=== PATIENT | male | born 1970 | race Caucasian/White ===

== ENCOUNTER → 2021-06-01 09:28 | Outpatient (BNVA) | payer OTHER, SELFPAY | PROVIDERS: Family Provider Family Medicine; PCP Registered Nurse; Visit Provider Urology | DX: C67.0 Malignant neoplasm of trigone of bladder (principal); R31.0 Gross hematuria | CPT/HCPCS: 81003 ==

== ENCOUNTER → 2021-06-04 07:51 | Outpatient (BNVA) | payer OTHER, SELFPAY | PROVIDERS: Family Provider Family Medicine; PCP Registered Nurse; Visit Provider Urology | DX: Z20.822 Contact with and (suspected) exposure to COVID-19 (principal); C67.0 Malignant neoplasm of trigone of bladder | CPT/HCPCS: 87635 ==

== ENCOUNTER 2021-06-19 07:43 | Outpatient (CLI) | payer MEDICARE, OTHER, SELFPAY ==
[2021-06-19] MEDS: iohexol 300 mg/mL 100 mL Btl IV (08:13)
--- NOTE | 2021-06-19 09:30 | CT_ITS ---
WS: [id number] CT ABDOMEN AND PELVIS WITH AND WITHOUT CONTRAST HISTORY: BLADDER CANCER TECHNIQUE: Unenhanced 5 mm axial imaging first performed through the abdomen. Post contrast imaging t hrough the abdomen and pelvis. Oral contrast has been provided. Sagittal and coronal reformats are s ubmitted. All CT scans at [facility] use at least one of these dose optimization techniqu es: automated exposure control; mA and/or kV adjustment per patient size (includes targeted exams whe re dose is matched to clinical indication); or iterative reconstruction. CONTRAST: Omnipaque 300; 95 mL IV. DLP: 2310.25 mGy.cm COMPARISON: 01/24/2013 Lung bases are clear. No pneumonia. Normal cardiac size. Small hiatal hernia. Normal liver and gallbladder. Portal vein is patent. Spleen is enlarged measuring 16 cm in length. No lesions within the spleen. Normal pancreas and adrenal glands. Normal abdominal aorta. RIGHT kidney: No renal calcification or mass. No hydronephrosis or hydroureter. There is mild perinep hric stranding. Good contrast opacification of the ureter on the delayed imaging. The distal ureter i s poorly opacified. LEFT kidney: Nonobstructing 8 mm calcification in the upper pole. There 2 microcalcifications in the lower pole of the LEFT kidney which are not obstructing. No hydronephrosis or hydroureter. Mild perin ephric stranding. Distal ureter is not well-opacified with contrast. Urinary bladder is moderately well distended. There is an intraluminal filling defect in the base of the bladder to the LEFT of midline measuring 1.6 x 1.5 cm. This mass is just medial to the LEFT urete r orifice. Very mild prominence of the prostate gland encroaching into the urinary bladder. No ascites or adenopathy. No GI tract obstruction. The appendix is normal. There are a few scattered diverticula in the descending colon without acute diverticulitis. No osteoblastic or osteolytic bone disease. Remote healed rib fractures in the posterior inferior LEF T rib cage. CT/CT abdomen pelvis wo/w [address]99 IMPRESSION: 1. Solid mass in the base of the urinary bladder to the LEFT of midline measur es 1.6 x 1.5 cm. This mass is just medial to the LEFT ureteral orifice. Suspici ous for bladder neoplasm. 2. No renal/ureteral obstruction. No additional uroepithelial lesions are iden tified. 3. Nonobstructing LEFT renal calculi. 4. Mild splenomegaly. Size of the spleen is slightly increased since 2013.1 no adenopathy or splenic lesions. 5. Mild distal colonic diverticulosis.
== END 2021-06-19 07:44 | disposition home or self-care (01) ==
LOC: RAD 07:48
PROVIDERS: PCP Family Medicine; Visit Provider Urology
DX: C67.0 Malignant neoplasm of trigone of bladder (principal); K57.90 Diverticulosis of intestine, part unspecified, without perforation or abscess without bleeding; R16.1 Splenomegaly, not elsewhere classified; N20.0 Calculus of kidney
CPT/HCPCS: 74178

== ENCOUNTER 2021-06-22 20:01 | Observation (INO) | payer MEDICARE, OTHER, SELFPAY ==
[2021-06-19 12:50] VITALS: BMI 28.0
[2021-06-22] VITALS (11 sets, daily range): BP systolic 113–135; BP diastolic 69–92; PULSE 51–81; RESP 16–17; TEMP 36.1–36.9; O2SAT 93–99; BMI 27.1
[2021-06-22] MEDS: sodium chloride 0.9% 1,000 ML 30 ML IV (14:16)
[2021-06-22 14:29] LABS: Basophils % 0.3 %; Eosinophils # 0.1 10^3/uL (0.0-0.8); Eosinophils % 1.2 %; Hematocrit 43.1 % (42.0-52.0); Lymphocytes # 1.2 10^3/uL (0.8-4.8); Mean Corpuscular HGB Conc 34.8 g/dL (30.0-36.0); Mean Corpuscular Hemoglobin 30.2 pg (28.0-34.0); Mean Corpuscular Volume 86.9 fL (80-94); Mean Platelet Volume 10.9 fL (7.4-10.4); Monocytes # 0.3 10^3/uL (0.2-0.9); Monocytes % 4.4 %; Neutrophils # 4.28 10^3/uL (1.8-7.7); Neutrophils % 72.9 %; Nucleated Red Blood Cells % 0 %; Platelet Count 105 10^3/cmm (130-400); Red Blood Count 4.96 10^6/uL (4.1-5.3); Red Cell Distribution Width 12.2 % (12.1-15.1); White Blood Count 5.9 10^3/uL (4.0-10.0)
--- NOTE | 2021-06-22 15:00 | P.ANESASSM_ITS ---
Pre-Anesthetic Assessment Pre-Anesthetic Assessment: Height/Weight: Height 1.75 m Weight 86.183 kg Temp Pulse Resp BP Pulse Ox 97.9 F 58 L 16 122/80 95 06/22/21 13:02 06/22/21 13:02 06/22/21 13:02 06/22/21 13:02 06/22/21 13:02 Preop Diagnosis: Newly diagnosed bladder tumor Proposed Procedure: Operation Date: 06/22/21 15:55 Proposed Procedures p Cystoscopy 23666 C67.0(Not Applicable) - Chicho Rodriguez MD s Transurethral Resection Bladder Tumor(Not Applicable) - Chicho Rodriguez MD Was Beta Bob taken within 24 hours: N/A Was Clonidine taken within 24 hours: N/A Last intake: Intake Last Liquid Date 06/22/21 Last Liquid Time 09:00 Last Solid Date 06/21/21 Last Solid Time 17:00 Social: Social History: Tobacco (chews) and No alcohol Exam: Pre-Anes Outpt Exam: alert, oriented x 3, clear to auscultation bilaterally and regular rate & rhythm Airway: Submandibular: WNL Cervical ROM: WNL MP: 2 Dentition: Chipped Additional comments: poor, missing most GI: GI: GERD Musc/skel: Musc/skel: OA/DJD Neuropsych: Neuropsych: Anxiety and Depression Anesthetic Plan: ASA status: 3 Anesthesia: General Risk of > 500 ml blood loss (7ml/kg in children): No Meds/Allergies Current Medications: Current Medications Generic Name Dose Route Start Last Admin Trade Name Freq PRN Reason Stop Dose Admin Sodium Chloride 1,000 mls @ 30 ml s/hr 06/22/21 13:00 06/22/21 14:16 Sodium Chloride 0.9% IV 06/23/21 12:59 30 mls/hr .Q24H SULAIMAN Administration PFSH Anesthesia PFSH: Medical History 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 Gross hematuria Surgical History History of hernia surgery Family History (Updated 06/01/21 @ 09:25 by Philomena Davidson LPN) Father , at age 75 COVID-19 Mother Osteoarthritis Social History Smoking and tobacco status: former smoker Alcohol intake: never Marital status: Single Current occupational status: employed History of recent travel: No Data Anesthesia CBC & Chem 7: 06/22/21 13:55 06/22/21 13:55 Other Labs: Laboratory Results - last 48 hr 06/22/21 13:55 WBC 5.9 RBC 4.96 Hgb 15.0 Hct 43.1 MCV 86.9 MCH 30.2 MCHC 34.8 RDW 12.2 Plt Count 105 L MPV 10.9 H Neut % (Auto) 72.9 Lymph % (Auto) 21.0 [place] % (Auto) 4.4 Eos % (Auto) 1.2 Baso % (Auto) 0.3 Neut # (Auto) 4.28 Lymph # (Auto) 1.2 [place] # (Auto) 0.3 Eos # (Auto) 0.1 Baso # (Auto) 0.0 Nucleated RBC % (auto) 0 Nucleated RBCs # 0.0 Cardiac Studies: No Data to Display
[2021-06-22 15:06] LABS: Alanine Aminotransferase 19 U/L (0-41); Albumin Level 4.3 g/dL (3.5-5.2); Alkaline Phosphatase 59 IU/L (40-130); Anion Gap 13.2 (5-19); Aspartate Amino Transferase 20 U/L (0-40); Blood Urea Nitrogen 20 mg/dL (6-20); Calcium 8.5 mg/dL (8.5-10.5); Carbon Dioxide 24 mmol/L (22-29); Chloride 104 mmol/L (98-107); Globulin 2.8 g/dL (1.3-4.6); Glomerular Filtration Rate 119.9 mL/min (90-130); Glucose 84 mg/dL (65-115); Osmolality Calculated 286 mOsm/kg (285-295); Potassium 4.2 mmol/L (3.5-5.1); Sodium 137 mmol/L (136-145); Total Bilirubin 0.5 mg/dL (0.15-1.2); Total Protein 7.1 g/dL (6.6-8.7)
--- NOTE | 2021-06-22 16:43 | P.HPUD_ITS ---
Surgery/Procedure H&P Update DATE OF PROCEDURE: June 22, 2021 DATE H&P PERFORMED: 06/01/21 H&P UPDATE INFORMATION: I have reviewed H&P completed within last 30 days, I have examined patient prior to procedure, Changes to prior documentation as noted here and H&P is in [facility] EMR on date indicated CHANGES TO PREVIOUS DOCUMENTATION: Had asymptomatic Covid per routine screening Covid testing before surgery. Never had any symptoms. Never had a problem. Waited the appropriate time for safety regarding anesthesia PREOP DIAGNOSIS: Newly diagnosed bladder tumor PLANNED PROCEDURE: Operation Date: 06/22/21 15:55 Proposed Procedures p Cystoscopy 94818 C67.0(Not Applicable) - Chicho Rodriguez MD s Transurethral Resection Bladder Tumor(Not Applicable) - Chicho Rodriguez MD
--- NOTE | 2021-06-22 17:43 | P.OP_ITS ---
Operative Report Date of procedure: June 22, 2021 Pre-op Diagnosis: Newly diagnosed bladder tumor Post-op Diagnosis: 1. Papillary tumor left trigone involving the left ureteral orifice 2. Suspicious bladder mucosa distinctly separate from the bladder tumor described above 3. Urethral stricture dilated and bypassable. Did not interfere with passage of the scopes. Procedure Done: 1. Cystoscopy, transurethral resection of bladder tumor large 2. Biopsy of suspicious mucosa left posterior bladder floor separate location 3. LEFT ureteroscopy, no stent Pathology: Bladder tumor specimens Surgeon: Michael Anesthesia: General Estimated blood loss: Less than 50 cc Urine output: Not measured Complications: None Findings: Papillary tumor involving the left side of the trigone and left ureteral orifice measuring approximately 3 cm in diameter. Suspicious mucosa lateral and distal to the ureteral orifice and tumor with flat appearance, suspicious for possible atypia or carcinoma in situ measuring about 3 cm as well. Completely fulgurated after sampling Condition: stable Disposition: PACU Brief History: Guzman is a very pleasant 50-year-old white male recently diagnosed with a papillary lesion in the bladder consistent with TCCA. Follow-up CT scan (for hematuria) showed the bladder tumor no other obvious abnormality other than renal calculus. He was originally scheduled a couple weeks ago for TURBT but had to be postponed due to an asymptomatic positive Covid test. Procedure: After routine preoperative evaluation examination and obtaining of informed consent he was taken to the operating suite on 06/22/2021 where general anesthesia was administered without difficulty after appropriate timeout was performed, SCDs confirmed to be functioning, preoperative antibiotics administered, beta- star protocol confirmed. Prepped and draped in usual sterile fashion in dorsolithotomy position paying careful attention to avoiding pressure points. 21 Sammarinese cystoscope with 30 degree lens was introduced into urethra meatus and advanced into the bladder under videoscopy. The bladder was systematically examined. Cystoscopic findings: Bypassable urethral stricture initially dilated with a 21 Sammarinese, 23 Sammarinese and then 25 Sammarinese cystoscope sheath followed by [place] sounds as below. 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 Measured approximately 3 cm in side. It was directly over the left side of the trigone with no visualization of the left ureteral orifice made. There was also some suspicious mucosa distal and lateral to the left ureteral orifice and tumor that could have represented carcinoma in situ versus atypia type appearance. This measured another roughly 3 cm in diameter. The urethra was then calibrated with [place] sounds and easily accommodated 30 Sammarinese. 2% lidocaine jelly was instilled into the urethra then a well-lubricated 25 Sammarinese continuous-flow resectoscope sheath with visual obturator in place was advanced into the bladder without difficulty. The gyrus bipolar system was utilized with the super loop for resection of the button probe for fulguration of the base. The tumor was resected down to its base with a super loop. The tumor involved the ureteral orifice which was resected deeply. Deep resection into the bladder wall with cystoscopic visualization of muscle made. The ureter was identified in the middle of the resection. It had a wide opening. No visible tumor was noted at the resection site. There was no active bleeding at the edges of the ureter. All chips were evacuated from the bladder with an TreatFeed evacuator and hemostasis was visually confirmed. Indigo carmine had been injected intravenously and was seen to be emanating from both ureteral orifices. To confirm that there was no tumor inside of the ureter, a ureteroscopy was then performed. A 7 Sammarinese offset semirigid ureteroscope was advanced into the bladder under videoscopy. The end of the scope was manipulated into the ureteral orifice and up the ureter several inches. The ureter was carefully inspected and no residual tumor was identified. There were several small bleeding areas close by but not involving the ureteral orifice and these were carefully fulgurated with the super loop. No fulguration was conducted over the ureteral orifice. The suspicious mucosa mucosa described above was then sampled with a cold cup biopsy forcep. The button probe was then utilized to fulgurate this biopsy area and the surrounding mucosa for the full diameter of the suspicious changes. On final inspection hemostasis was meticulous. All samples were sent for pathologic evaluation. The resected left ureteral orifice was effluxing easily. No stent. Tolerated procedure well without complications and was awakened in the operating room and returned to recovery in stable condition. PLANS: 1. Admit to observation status with Roy catheter in place. CBI as needed 2. Anticipate mitomycin instillation in the morning with voiding trial 3. Anticipate discharge from the hospital tomorrow likely without Roy catheter.
[2021-06-22] MEDS: levofloxacin-dextrose 5 % 500 MG/100 ML PREMIX 100 MG IV (17:55)
[2021-06-22] MEDS: lidocaine 2% Urojet 20 mL TOPICAL (18:25)
--- NOTE | 2021-06-22 19:53 | ANE.PACU2 ---
Inpatient post-anesthesia follow up: Airway intact: Yes Vital signs: Temperature 97.5 F Pulse Rate 57 Respiratory Rate 16 Blood Pressure 125/84 Pulse Oximetry 95 Oxygen Delivery Me thod Room Air Oxygen Flow Rate 5 Fraction of Inspir ed Oxygen Hydration adequate: Yes Nausea and vomiting: No Pain level: 2 Mental status: Baseline
[2021-06-22] MEDS: docusate sodium 100 mg Capsule PO (21:23)
[2021-06-22] MEDS: pantoprazole DR 40 mg Tablet PO (21:23)
[2021-06-22] MEDS: sertraline 100 mg Tablet PO (21:23)
--- NOTE | 2021-06-22 23:09 | PC.NURSE ---
Admit Note Patient admitted to room from surgery via rney at 1930. Covering service notified. Patient presents with POD#0 TURBT with CBI running clear and blue tinted, IVF running. No pain, just c/o needing to void and understands that he has a catheter in. Pt is A&OX4. Orders reviewed & will continue to monitor. Patient and/or sales representative groceries oriented to environment, equipment, and informed of the following as found in the admission booklet: patient rights & responsibilities, visitor policy, hand and respiratory hygiene practice. Other education includes: CBI, pain management, evening medications scheduled, SCD, diet and plan for the morning with Physician rounds. Patient and/or sales representative groceries verbalized understanding.
[2021-06-23 00:05] VITALS: BP 120/77; PULSE 71; RESP 16; TEMP 36.6; O2SAT 93
[2021-06-23] MEDS: HYDROcodone-acetaminophen 5-325 mg Tablet 1 TAB PO (00:32)
[2021-06-23 02:17] VITALS: BP 111/64; PULSE 74; RESP 16; TEMP 36.6; O2SAT 93
--- NOTE | 2021-06-23 03:40 | PC.NURSE ---
CBI: Pt has had 1000 of NS via CBI as of 0340 and 2450 of urine output total for a difference of 1450ml of urine output for this shift. CBI dripping slowly and urine remains clear, no clots noted. Pain well controlled.
[2021-06-23 04:05] VITALS: BP 105/66; PULSE 63; RESP 16; TEMP 37.1; O2SAT 94
--- NOTE | 2021-06-23 06:50 | PC.NURSE ---
Shift Note Frequent safety and comfort rounds continue. Orders and/or nursing care completed as indicated. Patient monitored for response to intervention and treatment. Education provided includes CBI titration and pain management. Patient verbalized understanding. Maintained good urine output. Will continue to monitor.
--- NOTE | 2021-06-23 06:51 | PC.NURSE ---
CBI: At 0600 Intake 300ml of NS via CBI and 100ml of urine output received.
--- NOTE | 2021-06-23 07:33 | P.DS_ITS ---
Discharge Providers Date of Admission: 06/22/21 20:01 Date of Discharge: June 23, 2021 Attending Provider at Admission: Chicho Rodriguez MD Attending Provider at Discharge: Chicho Rodriguez MD Primary Care Provider: Sil Harp DO Diagnoses at Discharge Discharge Diagnosis (1) Cancer of trigone of urinary bladder: Status: Acute Permanent problem details: Diagnosed May 2021 during work-up for gross hematuria. Reason for Visit Reason for Visit: cystoscopy Hospital Course Hospital Course He was admitted on the day of the procedure (06/22/2021) for TURBT of a newly diagnosed bladder cancer over the left ureteral orifice/left trigone. The procedure went well. The tumor was completely resected and it involved the left ureteral orifice which was also resected. Left ureteroscopy revealed no evidence of tumor extending up the ureter. There was also some mucosal characteristics suspicious for possible carcinoma in situ in this area was sampled and then fulgurated. Total resected/fulgurated area was >5 cm. Postoperatively he did well. His urine remained clear. On postoperative day number 140 mg of mitomycin and 40 cc was instilled into the bladder without difficulty and he tolerated it well for an hour at which point it was drained. Voiding trial was successful and he was discharged after adequate voiding was confirmed and no significant bleeding also was confirmed. Discharged in stable condition with plans for follow-up in about 2 months with a renal ultrasound and a cystoscopy. He was instructed to call if he has not heard from my office regarding his pathology report sometime within the next week. I reviewed how he could reach me after hours as well. Physical Exam Const: COMMON NORMALS: no acute distress, alert and well nourished GENERAL APPEARANCE: well kempt and well developed ORIENTATION/CONSCIOUSNESS: not confused HENMT: COMMON NORMALS: normocephalic and atraumatic HEAD & SCALP: normocephalic and atraumatic Eye: COMMON NORMALS: conjunctivae normal CONJUNCTIVA: Yes conjunctivae normal Neck/C-Spine: COMMON NORMALS: full ROM GENERAL: Yes normal visual inspection Resp: COMMON NORMALS: normal respiratory effort EFFORT & INSPECTION: No labored and No Actively coughing : BLADDER/KIDNEY EXAM: Yes bladder normal to palpation PENIS: normal penis MEATUS: meatus normal SCROTUM: Yes testes descended bilaterally and No Scrotal tenderness present Neuro: SENSORIUM/ORIENTATION: Yes alert Psych: COMMON NORMALS: mental status grossly normal and Normal thought process present APPEARANCE: Yes grossly normal and Yes well kempt ATTITUDE: Yes calm and Yes engaged THOUGHT PROCESS: Normal thought process present Skin: COMMON NORMALS: no rashes or lesions noted and no jaundice GENERAL SKIN EXAM: no rashes or lesions noted Urinary Catheter Management^: 3-way Urethral CBI: Cath Placed During This Visit: yes Reason for Continuing Indwelling Catheter: Perioperative Use in Selected Surgeri es Urinary Catheter Date of Insertion: 06/22/21 Urinary Catheter Time of Insertion: 18:45 Discharge Data Data Completed and Pending: Pending at discharge Category Date Time Status Pathology: Surgic al [PTH] Routine Pth 06/22/21 18:33 Ordered Labs from last 24 hours 06/22/21 06/22/21 13:55 13:55 WBC 5.9 RBC 4.96 Hgb 15.0 Hct 43.1 MCV 86.9 MCH 30.2 MCHC 34.8 RDW 12.2 Plt Count 105 L MPV 10.9 H Neut % (Auto) 72.9 Lymph % (Auto) 21.0 [place] % (Auto) 4.4 Eos % (Auto) 1.2 Baso % (Auto) 0.3 Neut # (Auto) 4.28 Lymph # (Auto) 1.2 [place] # (Auto) 0.3 Eos # (Auto) 0.1 Baso # (Auto) 0.0 Nucleated RBC % (a uto) 0 Nucleated RBCs # 0.0 Sodium 137 Potassium 4.2 Chloride 104 Carbon Dioxide 24 Anion Gap 13.2 BUN 20 Creatinine 0.7 GFR Calculation 119.9 Glucose 84 Calculated Osmolal ity 286 Calcium 8.5 Total Bilirubin 0.5 AST 20 ALT 19 Alkaline Phosphata se 59 Total Protein 7.1 Albumin 4.3 Globulin 2.8 Vitals: Last Vital Signs Temp 98.7 F 06/23/21 04:05 Pulse 63 06/23/21 04:05 Resp 16 06/23/21 04:05 BP 105/66 06/23/21 04:05 Pulse Ox 94 06/23/21 04:05 Discharge Plan Discharge Patient Disposition: Home Condition: Stable Prescriptions: Continued alprazolam 1 mg tablet 1 mg PO BEDTIME RF: 0 trazodone 100 mg tablet 100 mg PO DAILY RF: 0 esomeprazole magnesium [Nexium] 40 mg capsule,delayed release(DR/EC) 40 mg PO BEDTIME RF: 0 sertraline 100 mg tablet 100 mg PO BEDTIME RF: 0 zinc 50 mg tablet 50 mg PO DAILY RF: 0 multivitamin Tablet 1 tab PO DAILY RF: 0 cetirizine [Zyrtec] 10 mg Tablet 10 mg PO DAILY RF: 0 montelukast [Singulair] 10 mg Tablet 10 mg PO DAILY RF: 0 Held meloxicam 15 mg Tablet 15 mg PO DAILY RF: 0 Hold Instructions: Resume on 06/30/21. Discharge Orders: Discharge Order (Routine); Ordered 06/23/21 Ordered By: Chicho Rodriguez Referrals: Chicho Rodriguez MD [Physician] - 08/25/21 9:45 am (Cystoscopy Check into the hospital prior to appointment for a renal ultrasound then proceed to Dr. Augustine office. ) Discharge Diet: Usual diet Discharge Activity: Limit activity as instructed Patient Instructions: Cystoscopy (DC), Transurethral Resection of Bladder Tumors (GEN), Opioid Safety Activity Restrictions/Additional Instructions: 1. Please do not lift more than 10 pounds for 3 weeks. 2. Call if you are having difficulty voiding. Stretching your bladder out, becoming distended can be a big problem if it occurs. 3. Drinking more fluid than usual can be helpful to flush your bladder if you have seeing bleeding. 4. We will plan on looking into your bladder and doing a RENAL ULTRASOUND in about 2 months. 5. If not heard from my office within a week please call so we can review your pathology report. 6. At this point it appears that the bladder cancer is not invasive or very aggressive but the pathology report will tell us more information. Discharge Attestations Time Spent in Discharge Care*: greater than 30 min Specific Discharge Activities: educating patient, documenting/other paperwork and evaluating patient/reviewing data Other discharge activites (optional): Mitomycin instillation Quality Metrics Clinical Quality Measures During this hospital stay, did patient experience: None Coding Level of Care Code Acute Chg FW DC note Exam Comprehensive Diagnoses Cancer of trigone of urinary bladder C67.0
[2021-06-23 07:43] VITALS: BP 111/64; PULSE 61; RESP 17; TEMP 36.5; O2SAT 95
--- NOTE | 2021-06-23 07:52 | PC.NURSE ---
mitomycin administered by Dr Rodriguez at 0720.
[2021-06-23] MEDS: cetirizine 10 mg Tablet PO (08:05)
[2021-06-23] MEDS: docusate sodium 100 mg Capsule PO (08:05)
[2021-06-23] MEDS: trazodone 100 mg Tablet PO (08:05)
--- NOTE | 2021-06-23 08:27 | PC.NURSE ---
Drained Mitomycin at 0820.
--- NOTE | 2021-06-23 08:27 | PC.NURSE ---
Roy catheter removed. urinal provided.
--- NOTE | 2021-06-23 10:45 | PC.NURSE ---
discharge instructions given to patient. patient verbalized understanding of instructions. patient calling family for ride home.
--- NOTE | 2021-06-23 11:07 | PC.NURSE ---
patient taken to private vehicle via wheelchair by staff.
[2021-06-23 11:08] VITALS: BP 111/64; PULSE 61; RESP 17; TEMP 36.5; O2SAT 95
--- NOTE | 2021-06-29 10:37 | PC.SOCIAL ---
Discharge follow up call made. Patient aware of follow up appointment with Dr. Rodriguez 10-12 @3543. Patient states he is feeling pretty good No new medications prescribed.
== END 2021-06-23 11:09 | disposition home or self-care (01) ==
LOC: MEDSURG 20:02
PROVIDERS: Admitting Provider Urology; PCP Family Medicine; Visit Provider Urology
PROC: 0TJB8ZZ Inspection of Bladder, Via Natural or Artificial Opening Endoscopic (ICD-10-PCS; CPT 52000; principal; 2021-06-22 15:55)
PROC: 0TBB8ZZ Excision of Bladder, Via Natural or Artificial Opening Endoscopic (ICD-10-PCS; CPT 52204; 2021-06-22 15:55)
PROC: 0TJ98ZZ Inspection of Ureter, Via Natural or Artificial Opening Endoscopic (ICD-10-PCS; CPT 52351; 2021-06-22 15:55)
DX: C67.0 Malignant neoplasm of trigone of bladder (principal); N35.919 Unspecified urethral stricture, male, unspecified site; K21.9 Gastro-esophageal reflux disease without esophagitis; M19.90 Unspecified osteoarthritis, unspecified site; F41.9 Anxiety disorder, unspecified; F32.9 Major depressive disorder, single episode, unspecified; Z87.891 Personal history of nicotine dependence
CPT/HCPCS: 52204; 52240; 51798; 80053; 85025; 88305; 96365; G0378; J1100; J1940; J1956; J2405; J2704; J2710; J3010; J3490; J7030; J9280

== ENCOUNTER → 2021-07-27 09:24 | Outpatient (BNVA) | payer MEDICARE, OTHER, SELFPAY | PROVIDERS: PCP Family Medicine; Visit Provider Nurse Practitioner Family | DX: C67.0 Malignant neoplasm of trigone of bladder (principal) | CPT/HCPCS: 81003 ==

== ENCOUNTER 2021-08-06 18:45 | Observation (INO) | payer MEDICARE, OTHER, SELFPAY ==
[2021-08-05 13:45] VITALS: BMI 26.9
[2021-08-06] VITALS (8 sets, daily range): BP systolic 116–150; BP diastolic 81–97; PULSE 69–95; RESP 12–19; TEMP 36.6–37.2; O2SAT 92–95; BMI 26.9
--- NOTE | 2021-08-06 | SCC_ITS ---
Procedure Done: 1. Cystoscopy, left retrograde ureteropyelogram 2. Transurethral resection of previous TURBT site with deep sampling 20.9 seconds of fluoroscopic guidance, for a cumulative dose of 5.48 mGy, was provided to Dr. Rodriguez by the radiology department. C-arm images of the abdomen were saved for the patient's permanent record. [facility]
--- NOTE | 2021-08-06 13:25 | SC_ITS ---
WS: [id number] INTRAOPERATIVE TECHNIQUE: 4 Spot fluoroscopic images for intraoperative purposes. FLUOROSCOPY TIME: 20.9 seconds CLINICAL INFORMATION: possible ureteroscopy COMPARISON: None. FINDINGS: Left ureteroscopy with contrast injection for intraoperative purposes. SC/C-arm FL for Urology IMPRESSION: Images obtained for intraoperative purposes.
[2021-08-06] MEDS: sodium chloride 0.9% 1,000 ML 30 ML IV (14:05)
--- NOTE | 2021-08-06 14:53 | P.HP_ITS ---
Providers/Chief Complaint Primary Care Provider: Sil Harp DO Chief Complaint: cytoscopy History of Present Illness Guzman De is a 51 year old male who is admitted for repeat deep resection following transurethral resection of bladder tumor for a 3 cm papillary tumor on the trigone involving the left ureteral orifice which was resected. A follow-up ureteroscopy showed no evidence of involvement in the ureter that included the intramural tunnel. No stent was left. The procedure was performed on 06/22/2021. 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 There was some lamina propria invasion identified. Based on the high risk bladder tumor pathology it was recommended a deeper resection to confirm the absence of muscle involvement. He is admitted now through outpatient surgery for TURBT of the previous site looking for evidence of residual tumor and as well the potential for muscle invasion that was not identified at initial resection. Review of Systems Const: Denies: fever(s) or chills Eyes: Denies: change in vision or blurry vision Card: Denies: chest pain Resp: Denies: dyspnea or productive cough GI: Denies: abdominal pain or constipation : Denies: urinary frequency or urinary urgency Psych: Denies: anxiety or depression Medications/Allergies Home Medications Medication Instructions Recorded Confirmed Last Taken Type alprazolam 1 mg tablet 1 mg PO BEDTIME 06/01/21 08/06/21 08/05/21 22:00 History esomeprazole magnesium 40 mg 40 mg PO BEDTIME 06/01/21 08/06/21 08/05/21 History capsule,delayed release multivitamin 1 tab PO DAILY 06/01/21 08/06/21 08/05/21 History sertraline 100 mg tablet 100 mg PO BEDTIME 06/01/21 08/06/21 08/05/21 History trazodone 100 mg tablet 100 mg PO DAILY 06/01/21 08/06/21 08/05/21 History zinc 50 mg tablet 50 mg PO DAILY 06/01/21 08/06/21 08/05/21 History cetirizine [Zyrtec] 10 mg PO DAILY 06/19/21 08/06/21 08/05/21 22:00 History montelukast [Singulair] 10 mg PO DAILY 06/19/21 08/06/21 08/05/21 History Allergies Allergy/AdvReac Type Severity Reaction Status Date / Time Penicillins Allergy ALTA-Siva Verified 08/06/21 13:35 Lip/Tongue/Throat PFSH Acute PFSH: Medical History (Updated 08/06/21 @ 14:58 by Chicho Rodriguez MD) 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 Lamina propria invasion. Gross hematuria Surgical History History of hernia surgery Family History Father , at age 75 COVID-19 Mother Osteoarthritis Social History Alcohol intake: never Marital status: Single Current occupational status: employed History of recent travel: No Vitals/I&O/Wt Last Vital Signs Temp 99.0 F 08/06/21 13:34 Pulse 80 08/06/21 13:34 Resp 17 08/06/21 13:34 BP 121/84 08/06/21 13:34 Pulse Ox 95 08/06/21 13:34 Weight last 48 hrs Weight 180 lb Physical Exam Const: COMMON NORMALS: no acute distress, alert and well nourished GENERAL APPEARANCE: well kempt and well developed ORIENTATION/CONSCIOUSNESS: not confused HENMT: COMMON NORMALS: normocephalic and atraumatic HEAD & SCALP: normocephalic and atraumatic Eye: COMMON NORMALS: conjunctivae normal CONJUNCTIVA: Yes conjunctivae normal Neck/C-Spine: COMMON NORMALS: full ROM GENERAL: Yes normal visual inspection Lymph: LYMPHATIC: no lymphadenopathy noted and no lymphedema noted Resp: COMMON NORMALS: normal respiratory effort and clear to auscultation bilaterally EFFORT & INSPECTION: No labored and No Actively coughing AUSCULTATION: clear to auscultation bilaterally Cardio: RATE: regular rate RHYTHM: regular rhythm Neuro: SENSORIUM/ORIENTATION: Yes alert Psych: COMMON NORMALS: mental status grossly normal and Normal thought process present APPEARANCE: Yes grossly normal and Yes well kempt ATTITUDE: Yes calm and Yes engaged THOUGHT PROCESS: Normal thought process present Skin: COMMON NORMALS: no rashes or lesions noted and no jaundice A&P Assessment and plan (1) Cancer of trigone of urinary bladder: High risk bladder cancer. Back for restaging resection. 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
--- NOTE | 2021-08-06 15:57 | ANES.PREANE2 ---
Pre-Anesthetic Assessment Pre-Anesthetic Assessment: Height/Weight: Height 1.74 m Weight 81.647 kg Temp Pulse Resp BP Pulse Ox 99.0 F 80 17 121/84 95 08/06/21 13:34 08/06/21 13:34 08/06/21 13:34 08/06/21 13:34 08/06/21 13:34 Preop Diagnosis: High-grade lamina propria invasive TCCA bladder Proposed Procedure: Operation Date: 08/06/21 15:35 Proposed Procedures p Cystoscopy 04328 [id number] C67.0(Not Applicable) - Chicho Rodriguez MD s Transurethral Resection Bladder Tumor(Not Applicable) - Chicho Rodriguez MD s Retrograde Pyelogram(Left) - Chicho Rodriguez MD s Ureteroscopy(Not Applicable) - Chicho Rodriguez MD Was Beta Bob taken within 24 hours: N/A Was Clonidine taken within 24 hours: N/A Last intake: Intake Last Liquid Date 08/06/21 Last Liquid Time 10:00 Last Solid Date 08/05/21 Last Solid Time 20:00 Social: Social History: Tobacco (chews) and No alcohol Exam: Pre-Anes Outpt Exam: alert, oriented x 3, clear to auscultation bilaterally and regular rate & rhythm Airway: Submandibular: WNL Cervical ROM: WNL MP: 2 Dentition: False (upper) Additional comments: Missing most of lower arch GI: GI: GERD Musc/skel: Musc/skel: OA/DJD Neuropsych: Neuropsych: Anxiety and Depression Anesthetic Plan: ASA status: 3 Anesthesia: General Meds/Allergies Current Medications: Current Medications Generic Name Dose Route Start Last Admin Trade Name Freq PRN Reason Stop Dose Admin Sodium Chloride 1,000 mls @ 30 ml s/hr 08/06/21 13:30 08/06/21 14:05 Sodium Chloride 0.9% IV 08/07/21 13:29 30 mls/hr .Q24H SULAIMAN Administration PFSH Anesthesia PFSH: Medical History (Updated 08/06/21 @ 14:58 by Chicho Rodriguez MD) 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 Lamina propria invasion. Gross hematuria Surgical History History of hernia surgery Family History Father , at age 75 COVID-19 Mother Osteoarthritis Social History Alcohol intake: never Marital status: Single Current occupational status: employed History of recent travel: No Data Anesthesia Cardiac Studies: No Data to Display
[2021-08-06] MEDS: levofloxacin-dextrose 5 % 500 MG/100 ML PREMIX 100 MG IV (17:20)
[2021-08-06] MEDS: lidocaine 2% Urojet 20 mL TOPICAL (17:44)
--- NOTE | 2021-08-06 18:15 | P.OP_ITS ---
Operative Report Date of procedure: August 06, 2021 Pre-op Diagnosis: High-grade lamina propria invasive TCCA bladder Pre-op Diagnosis: Sarcomatoid differentiation Post-op diagnosis: same Procedure Done: 1. Cystoscopy, left retrograde ureteropyelogram 2. Transurethral resection of previous TURBT site with deep sampling Implants: None Pathology: Left trigone resection Surgeon: Michael Anesthesia: General Estimated blood loss: Minimal Urine output: Not measured Complications: None Findings: No gross tumor visualized. Deeper sections taken at the previous resection site. Left retrograde ureteropyelogram showed no evidence of obstruction filling defects etc. The area of the ureteral orifice resection is healing well with wide open meatus. Condition: stable Disposition: PACU Brief History: Guzman is a delightful 51-year-old white male recently discovered on work-up for gross hematuria to have a papillary lesion over the left ureteral orifice which appeared to be typical for TCCA. He underwent resection and was found to have high-grade TCCa with sarcomatoid variation/differentiation. There was some lamina propria invasion. No muscle was identified. He is taken back now for restaging resection of the same area. Procedure: After routine preoperative evaluation examination and obtaining of informed consent he was taken to the operating suite on 08/06/2021 where general anesthesia was administered without difficulty after appropriate timeout was performed, SCDs confirmed to be functioning, preoperative antibiotics administered, beta-star protocol confirmed. Prepped and draped in usual sterile fashion in dorsolithotomy position paying careful attention to avoiding pressure points. 21 [place] cystoscope with 30 degree lens was introduced into urethra meatus and advanced into the bladder under videoscopy. He was found to have a large bypassable mid urethral stricture there which was quite flimsy. The bladder was systematically examined with 30 and 70 degree lenses. There were some papillary changes just cephalad to the left ureteral orifice but these appear to be more inflammatory/healing appearance as opposed to recurrent tumor. The ureteral orifice itself was quite prominent and consistent with the findings of the previous resection which involved into intramural tunnel with some eversion of the ureteral tissue into the bladder. E flux was noted. An 8 [place] cone-tip catheter was intubated to the left ureteral orifice for left retrograde ureteropyelogram which demonstrated normal course and caliber of the ureter. The pyelocalyceal system looked normal. There is no evidence of any filling defects in the distal ureteral area. [place] sounds were then passed to 26 [place] with no difficulty. A 25 [place] continuous-flow resectoscope sheath was advanced into the well- lubricated urethra into the bladder with use of a visual obturator without difficulty. Super loop was utilized for resection of the area near the orifice where a previous resection had been completed and it was taken down deeply into the muscle for an extension of about 2-1/2 to 3 cm total resected area. Muscle was clearly visualized. Depth was clearly into that area. Bleeding was controlled with electrocautery staying well away from the ureteral orifice i tself. Bladder was drained of the fragments and these were sent for pathologic evaluation. Hemostasis was confirmed and the procedure was completed. The bladder was drained with a 20 [place] Roy with good reflux. Low flow prophylactic normal saline CBI was initiated. PLANS: 1. Admit to observation status 2. Based on the depth of resection I will probably send him home with a ca theter in place. 3. Final plans pending pathology report
--- NOTE | 2021-08-06 18:24 | P.PCN_ITS ---
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
--- NOTE | 2021-08-06 18:27 | SUR.PHASEI ---
1820 patient to pacu from or. rr even and unlabored. talkative, denies pain. patient has christina cath in place, secured to right leg with cbi running, urine clear.
--- NOTE | 2021-08-06 18:29 | ANE.PACU2 ---
Inpatient post-anesthesia follow up: Airway intact: Yes Vital signs: Temperature 99.0 F Pulse Rate 80 Respiratory Rate 17 Blood Pressure 121/84 Pulse Oximetry 95 Oxygen Delivery Me thod Room Air Oxygen Flow Rate Fraction of Inspir ed Oxygen Hydration adequate: Yes Nausea and vomiting: No Pain level: 2 Mental status: Baseline
--- NOTE | 2021-08-06 19:02 | SUR.PHASEI ---
1850 patient to med surg at this time. a/ox3, talkative. denies pain. patient ambulatory from stretcher to bed, with steady gait.
[2021-08-06] MEDS: sertraline 100 mg Tablet PO (20:31)
[2021-08-06] MEDS: pantoprazole DR 40 mg Tablet PO (20:31)
[2021-08-06] MEDS: lactated ringers 1,000 ML 50 ML IV (20:33)
[2021-08-07] VITALS: BP 135/87; PULSE 84; RESP 17; TEMP 36.8; O2SAT 95
[2021-08-07 03:06] VITALS: BP 120/75; PULSE 86; RESP 17; TEMP 36.6; O2SAT 96
[2021-08-07 07:41] VITALS: BP 126/88; PULSE 86; RESP 18; TEMP 36.5; O2SAT 95
[2021-08-07 09:24] VITALS: BP 126/88; PULSE 86; RESP 18; TEMP 36.5; O2SAT 95
--- NOTE | 2021-08-08 10:20 | PM.DCS ---
Discharge Providers Date of Admission: 08/06/21 18:45 Date of Discharge: August 08, 2021 Attending Provider at Admission: Chicho Rodriguez MD Attending Provider at Discharge: Chicho Rodriguez MD Primary Care Provider: Sil Harp DO Diagnoses at Discharge Discharge Diagnosis (1) Cancer of trigone of urinary bladder: Status: Acute Permanent problem details: Diagnosed May 2021 during work-up for gross hematuria. 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 Lamina propria invasion. Reason for Visit Reason for Visit: High risk bladder cancer Hospital Course Hospital Course Guzman was admitted on 08/06/2021 for repeat resection for staging purposes after initial TURBT of the LEFT trigone demonstrated high-grade lamina propria invasive TCCA with sarcomatoid variant/differentiation. Previous ureteroscopy at time of initial resection showed no evidence of involvement of the ureter proximal to the resection. The procedure went well. A left retrograde ureteropyelogram showed no evidence of obstruction or filling defects. The ureter was healing well after resection of the distal intramural tunnel. Deep resection was performed down to visible muscle tissue and for that reason catheter was left in place at discharge for further healing prior to voiding trial. He was discharged on postoperative day #1 in stable condition after no untoward events on the night of surgery. Plan was to see him back in about a week for voiding trial. Physical Exam Const: COMMON NORMALS: no acute distress, alert and well nourished GENERAL APPEARANCE: well kempt and well developed ORIENTATION/CONSCIOUSNESS: not confused HENMT: COMMON NORMALS: normocephalic and atraumatic HEAD & SCALP: normocephalic and atraumatic Eye: COMMON NORMALS: conjunctivae normal and no scleral icterus CONJUNCTIVA: Yes conjunctivae normal Neck/C-Spine: COMMON NORMALS: full ROM GENERAL: Yes normal visual inspection Resp: COMMON NORMALS: normal respiratory effort EFFORT & INSPECTION: No labored and No Actively coughing Neuro: SENSORIUM/ORIENTATION: Yes alert Psych: COMMON NORMALS: mental status grossly normal APPEARANCE: Yes grossly normal and Yes well kempt ATTITUDE: Yes calm and Yes engaged Skin: COMMON NORMALS: no rashes or lesions noted and no jaundice GENERAL SKIN EXAM: no rashes or lesions noted Urinary Catheter Management^: 3-way Urethral CBI: Cath Placed During This Visit: yes Reason for Continuing Indwelling Catheter: Accurate Measurement of Urinary Output in Critically Ill Patients Urinary Catheter Date of Insertion: 08/06/21 Urinary Catheter Time of Insertion: 18:10 Discharge Data Data Completed and Pending: Pending at discharge Category Date Time Status Pathology: Surgic al [PTH] Routine Pth 08/07/21 11:10 Ordered Vitals: Last Vital Signs Temp 97.7 F 08/07/21 09:24 Pulse 86 08/07/21 09:24 Resp 18 08/07/21 09:24 BP 126/88 08/07/21 09:24 Pulse Ox 95 08/07/21 09:24 Discharge Plan Discharge Patient Disposition: Home Condition: Stable Prescriptions: New sulfamethoxazole-trimethoprim 800-160 mg tablet 1 tab PO BID 7 Days Qty: 14 RF: 0 Continued alprazolam 1 mg tablet 1 mg PO BEDTIME RF: 0 trazodone 100 mg tablet 100 mg PO DAILY RF: 0 esomeprazole magnesium [Nexium] 40 mg capsule,delayed release(DR/EC) 40 mg PO BEDTIME RF: 0 sertraline 100 mg tablet 100 mg PO BEDTIME RF: 0 zinc 50 mg tablet 50 mg PO DAILY RF: 0 multivitamin Tablet 1 tab PO DAILY RF: 0 cetirizine [Zyrtec] 10 mg Tablet 10 mg PO DAILY RF: 0 montelukast [Singulair] 10 mg Tablet 10 mg PO DAILY RF: 0 Discharge Orders: Discharge Order (Routine); Ordered 08/07/21 Ordered By: Chicho Rodriguez Referrals: Chicho Rodriguez MD [Physician] - 08/14/21 10:30 am (Voiding trial, [facility] instruction.) Discharge Diet: Usual diet Discharge Activity: Limit activity as instructed Patient Instructions: Sulfamethoxazole/Trimethoprim (By mouth), Roy Catheter Care, Urinary Leg Bag (GEN), Opioid Safety Activity Restrictions/Additional Instructions: 1. The procedure went very well. No obvious tumor was identified but the pathology report will give us more information 2. We will maintain the catheter until I see you next week in the office. We want your bladder to heal more before we stress it with regular voiding. 3. Please avoid any heavy lifting or straining and that really means anything over 10 pounds. Everything leisure should be okay. Continue to drink a lot of fluid to help keep your urine clear. Discharge Attestations Time Spent in Discharge Care*: less than 30 min Quality Metrics Clinical Quality Measures During this hospital stay, did patient experience: None Coding Level of Care Code Acute Chg DC note Diagnoses Cancer of trigone of urinary bladder C67.0
--- NOTE | 2021-08-11 10:39 | PC.SOCIAL ---
discharge follow up call made. spoke with patient. he reports pain the first day but has improved since. patient is taking bactrim as prescribed. patient has christina cath in place, with leg bag and overnight bag. patient is using overnight bag due to having to dump too much during the day. patient is aware of follow up appointment with dr. maldonado 10-1 at 1030. patient isn't lifting anymore than 10 lbs and is avoiding any straining or strenuous activity.
== END 2021-08-07 09:25 | disposition home or self-care (01) ==
LOC: MEDSURG 20:13
PROVIDERS: Admitting Provider Urology; PCP Family Medicine; Visit Provider Urology
PROC: 0TJB8ZZ Inspection of Bladder, Via Natural or Artificial Opening Endoscopic (ICD-10-PCS; CPT 52000; principal; 2021-08-06 15:30)
PROC: 0TBB8ZZ Excision of Bladder, Via Natural or Artificial Opening Endoscopic (ICD-10-PCS; CPT 52235; 2021-08-06 15:30)
PROC: (CPT 74420; 2021-08-06 15:30)
PROC: 0TJ98ZZ Inspection of Ureter, Via Natural or Artificial Opening Endoscopic (ICD-10-PCS; CPT 52351; 2021-08-06 15:30)
DX: C67.0 Malignant neoplasm of trigone of bladder (principal); K21.9 Gastro-esophageal reflux disease without esophagitis; M19.90 Unspecified osteoarthritis, unspecified site; F41.9 Anxiety disorder, unspecified; F32.9 Major depressive disorder, single episode, unspecified
CPT/HCPCS: 52235; 76000; 88305; 96365; G0378; J1100; J1956; J2405; J2704; J2710; J3010; J3490; J7030

== ENCOUNTER → 2021-09-04 10:53 | Outpatient (BNVA) | payer MEDICARE, OTHER, SELFPAY | PROVIDERS: PCP Family Medicine; Visit Provider Urology | DX: C67.0 Malignant neoplasm of trigone of bladder (principal) | CPT/HCPCS: 81003 ==

== ENCOUNTER → 2021-09-11 10:26 | Outpatient (BNVA) | payer MEDICARE, OTHER, SELFPAY | PROVIDERS: PCP Family Medicine; Visit Provider Urology | DX: D09.0 Carcinoma in situ of bladder (principal); R31.0 Gross hematuria | CPT/HCPCS: 81003 ==

== ENCOUNTER → 2021-09-18 10:34 | Outpatient (BNVA) | payer MEDICARE, OTHER, SELFPAY | PROVIDERS: PCP Family Medicine; Visit Provider Urology | DX: D09.0 Carcinoma in situ of bladder (principal) | CPT/HCPCS: 81003 ==

== ENCOUNTER → 2021-09-25 10:44 | Outpatient (BNVA) | payer MEDICARE, OTHER, SELFPAY | PROVIDERS: PCP Family Medicine; Visit Provider Urology | DX: D09.0 Carcinoma in situ of bladder (principal) | CPT/HCPCS: 81003 ==

== ENCOUNTER → 2021-10-16 10:56 | Outpatient (BNVA) | payer MEDICARE, OTHER, SELFPAY | PROVIDERS: PCP Family Medicine; Visit Provider Urology | DX: D09.0 Carcinoma in situ of bladder (principal) | CPT/HCPCS: 81003 ==

== ENCOUNTER → 2021-10-23 10:31 | Outpatient (BNVA) | payer MEDICARE, OTHER, SELFPAY | PROVIDERS: PCP Family Medicine; Visit Provider Urology | DX: D09.0 Carcinoma in situ of bladder (principal) | CPT/HCPCS: 81003 ==

== ENCOUNTER → 2021-12-11 10:14 | Outpatient (BNVA) | payer MEDICARE, OTHER, SELFPAY | PROVIDERS: PCP Family Medicine; Visit Provider Urology | DX: C67.0 Malignant neoplasm of trigone of bladder (principal); N99.111 Postprocedural bulbous urethral stricture, male; D09.0 Carcinoma in situ of bladder | CPT/HCPCS: 81003 ==

== ENCOUNTER → 2021-12-31 15:51 | Outpatient (BNVA) | payer MEDICARE, OTHER, SELFPAY | PROVIDERS: PCP Family Medicine; Visit Provider Urology | DX: D09.0 Carcinoma in situ of bladder (principal); N99.111 Postprocedural bulbous urethral stricture, male | CPT/HCPCS: 81003 ==

== ENCOUNTER → 2022-01-08 11:15 | Outpatient (BNVA) | payer MEDICARE, OTHER, SELFPAY | PROVIDERS: PCP Family Medicine; Visit Provider Urology | DX: C67.0 Malignant neoplasm of trigone of bladder (principal); D09.0 Carcinoma in situ of bladder; N99.111 Postprocedural bulbous urethral stricture, male | CPT/HCPCS: 81003 ==

== ENCOUNTER → 2022-01-14 15:53 | Outpatient (BNVA) | payer MEDICARE, OTHER, SELFPAY | PROVIDERS: PCP Family Medicine; Visit Provider Urology | DX: D09.0 Carcinoma in situ of bladder (principal); N99.111 Postprocedural bulbous urethral stricture, male; C67.0 Malignant neoplasm of trigone of bladder | CPT/HCPCS: 81003 ==

== ENCOUNTER → 2022-03-05 11:35 | Outpatient (BNVA) | payer MEDICARE, OTHER, SELFPAY | PROVIDERS: PCP Family Medicine; Visit Provider Urology | DX: D09.0 Carcinoma in situ of bladder (principal) | CPT/HCPCS: 81003; 88112 ==

== ENCOUNTER → 2022-04-15 15:09 | Outpatient (BNVA) | payer MEDICARE, OTHER, SELFPAY | PROVIDERS: PCP Family Medicine; Visit Provider Urology | DX: C67.0 Malignant neoplasm of trigone of bladder (principal); D09.0 Carcinoma in situ of bladder; N99.111 Postprocedural bulbous urethral stricture, male | CPT/HCPCS: 51720; 81003; J9030 ==

== ENCOUNTER → 2022-04-22 15:12 | Outpatient (BNVA) | payer MEDICARE, OTHER, SELFPAY | PROVIDERS: PCP Family Medicine; Visit Provider Nurse Practitioner Family | DX: C67.0 Malignant neoplasm of trigone of bladder (principal); N99.111 Postprocedural bulbous urethral stricture, male; R30.0 Dysuria | CPT/HCPCS: 51720; 81003; J9030 ==

== ENCOUNTER → 2022-05-06 15:56 | Outpatient (BNVA) | payer MEDICARE, OTHER, SELFPAY | PROVIDERS: PCP Family Medicine; Visit Provider Urology | DX: D09.0 Carcinoma in situ of bladder (principal); N99.111 Postprocedural bulbous urethral stricture, male | CPT/HCPCS: 81003; 99024; J9030 ==

== ENCOUNTER → 2022-06-17 15:15 | Outpatient (BNVA) | payer MEDICARE, OTHER, SELFPAY | PROVIDERS: PCP Family Medicine; Visit Provider Urology | DX: C67.0 Malignant neoplasm of trigone of bladder (principal); D09.0 Carcinoma in situ of bladder; N99.111 Postprocedural bulbous urethral stricture, male | CPT/HCPCS: 81003; 99213 ==

== ENCOUNTER → 2022-07-26 15:28 | Outpatient (BNVA) | payer MEDICARE, OTHER, SELFPAY | PROVIDERS: PCP Family Medicine; Visit Provider Urology | DX: C67.0 Malignant neoplasm of trigone of bladder (principal); D09.0 Carcinoma in situ of bladder; N99.111 Postprocedural bulbous urethral stricture, male | CPT/HCPCS: 99214 ==

== ENCOUNTER 2022-08-02 09:41 | Day surgery (SDC) | payer MEDICARE, SELFPAY ==
[2022-07-30 14:52] VITALS: BMI 29.6
[2022-08-02] VITALS (8 sets, daily range): BP systolic 107–123; BP diastolic 66–83; PULSE 66–93; RESP 16–20; TEMP 36.2–37.1; O2SAT 92–97
--- NOTE | 2022-08-02 05:26 | P.HPUD_ITS ---
Surgery/Procedure H&P Update DATE OF PROCEDURE: August 02, 2022 DATE H&P PERFORMED: 07/26/22 H&P UPDATE INFORMATION: I have reviewed H&P completed within last 30 days, I have examined patient prior to procedure, No changes to prior documentation and H&P is in [facility] on date indicated PREOP DIAGNOSIS: High-grade lamina propria invasive TCCA bladder PLANNED PROCEDURE: Operation Date: 08/02/22 11:10 Proposed Procedures p CYSTOSCOPY TRANSURETHRAL RESECTION BLADDER TUMOR/BIOPSIES 97721,C67.0(Not Applicable) - Chicho Rodriguez MD s Cystoscopy(Not Applicable) - Chicho Rodriguez MD
[2022-08-02] MEDS: sodium chloride 0.9% 1,000 ML 30 ML IV (10:08)
--- NOTE | 2022-08-02 10:08 | P.ANESASSM_ITS ---
Pre-Anesthetic Assessment Height/Weight: Height 1.73 m Weight 88.451 kg Temp Pulse Resp BP Pulse Ox O2 Del Method 97.7 F 66 18 120/83 96 08/02/22 09:53 08/02/22 09:53 08/02/22 09:53 08/02/22 09:53 08/02/22 09:53 08/02/22 09:53 Preop Diagnosis: Transitional cell carcinoma the bladder Operation Date: 08/02/22 11:10 Proposed Procedures p CYSTOSCOPY TRANSURETHRAL RESECTION BLADDER TUMOR/BIOPSIES 35287,C67.0(Not Applicable) - Chicho Rodriguez MD s Cystoscopy(Not Applicable) - Chicho Rodriguez MD Familial anesthetic complications: none Was Beta Bob taken within 24 hours: N/A Was Clonidine taken within 24 hours: N/A Last intake: Intake Last Liquid Date 08/02/22 Last Liquid Time 07:00 Last Solid Date 08/01/22 Last Solid Time 18:00 Social Tobacco (chews) and No alcohol Exam alert, oriented x 3, clear to auscultation bilaterally and regular rate & rhythm Airway Mallampati: Class II Dentition: false Pulmonary None reported GI Gastroesophageal Reflux Disease [facility] [place] Osteoarthritis/DJD Anesthetic Plan ASA status: 2 Anesthesia: General Risk of > 500 ml blood loss (7ml/kg in children): No Medications/Allergies Home Medications Medication Instructions Recorded Confirmed Last Taken Type alprazolam 1 mg tablet 1 mg PO BEDTIME 06/01/21 08/02/22 08/01/22 History esomeprazole magnesium 40 mg 40 mg PO BEDTIME 06/01/21 08/02/22 08/01/22 History capsule,delayed release (Nexium) multivitamin 1 tab PO DAILY 06/01/21 08/02/22 08/01/22 History sertraline 100 mg tablet 100 mg PO BEDTIME 06/01/21 08/02/22 08/01/22 History trazodone 100 mg tablet 100 mg PO DAILY 06/01/21 08/02/22 08/01/22 History zinc 50 mg tablet 50 mg PO DAILY 06/01/21 08/02/22 08/05/21 History cetirizine 10 mg tablet (Zyrtec) 10 mg PO DAILY 06/19/21 08/02/22 08/01/22 History montelukast 10 mg tablet 10 mg PO DAILY 06/19/21 08/02/22 08/01/22 History (Singulair) Allergies Allergy/AdvReac Type Severity Reaction Status Date / Time Penicillins Allergy Sidra Verified 08/02/22 09:52 Lip/Tongue/Throat [facility] Anesthesia Medical History 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 Lamina propria invasion. Carcinoma in situ of bladder Gross hematuria Surgical History History of hernia surgery Family History Father , at age 75 COVID-19 Mother Osteoarthritis Social History Smoking and tobacco status: former smoker Alcohol intake: never Marital status: Current occupational status: employed History of recent travel: No Data Anesthesia Cardiac Studies: No Data to Display
--- NOTE | 2022-08-02 10:11 | P.OP_ITS ---
Operative Report Date of procedure: August 02, 2022 Pre-op diagnosis: Transitional cell carcinoma the bladder High risk variant Post-op diagnosis: Transitional cell carcinoma the bladder High risk variant Procedure done: 1. Cystoscopy, transurethral resection of bladder tumor medium Specimens removed/disposition: Bladder mucosa near left ureteral orifice Pathology: Bladder mucosa near left ureteral orifice Surgeon: Michael Estimated blood loss: Minimal Urine output: Not measured Complications: None Findings: Anesthesia: General Condition: Stable Disposition: PACU Intraoperative findings: * Mild mucosal changes. 2 areas resected on the trigone and just cephalad to the left ureteral orifice. * No bleeding of consequence. No catheter left indwelling. Brief History: Guzman is a very pleasant 52-year-old white male diagnosed last year with TCCA of the bladder involving the trigone on the left and the left ureteral orifice with both carcinoma in situ as well as sarcomatous variant of TCCA. Rebiopsy showed no tumor in the muscle. No residual sarcomatous variant. Has been treated with BCG. Also has a history of urethral stricture requiring stricture patency maintenance with [facility]IC. Procedure: After routine preoperative evaluation examination and obtaining of informed consent he was taken to the operating suite on 08/02/2022 where general anesthesia was administered without difficulty after appropriate timeout was performed, SCDs confirmed to be functioning, preoperative antibiotics administered, beta-star protocol confirmed. Prepped and draped in usual sterile fashion in dorsolithotomy position paying careful attention to avoiding pressure points. 17 [place] cystoscope sheath with 30 degree lens was introduced into the urethra meatus and advanced into the bladder under videoscopy. Bladder was systematically examined. The outpatient cystoscopy findings were confirmed. The urethra demonstrated deep bulbar strictures but they were soft and easily bypassed with a 17 scope. The urethra was then sequentially dilated with 17, 21, 23 and then 25 well-lubricated cystoscope sheaths and all were passed atraumatically. 2% lidocaine jelly was instilled into the urethra at the beginning and prior to passage of the 25 [place] continuous-flow resectoscope sheath with visual obturator in place. The gyrus bipolar system was utilized with a super loop alone. 2 specific areas near the left ureteral orifice were sampled and sent for pathologic evaluation labeled as left trigone near orifice There was no bleeding. Hemostasis was meticulous. The loop was utilized to cauterize the base of both resection sites that extended a total of about 2-1/2 to 3 cm. Care was paid throughout to avoid straining onto the orifice itself. The resection on the trigone did not extend across the midline to it. On final inspection all the samples were confirmed to have been collected and sent. There was no bleeding. It was decided to not leave a catheter. The bladder was drained with the scope and the procedure was completed. He tolerated the procedure well without complications and was awakened in the operating room and returned to the recovery room in stable condition. PLANS: 1. Anticipate discharge from outpatient surgery if voids well with no significa nt bleeding. 2. Follow-up later in the week or early next week for pathology report confirmation over the phone 3. If no evidence of significant pathology will continue surveillance cystoscopy in 3 months.
[2022-08-02] MEDS: levofloxacin-dextrose 5 % 500 MG/100 ML PREMIX 100 MG IV (10:28)
[2022-08-02] MEDS: lidocaine 2% Urojet 20 mL (11:18)
--- NOTE | 2022-08-02 11:28 | SUR.PHASEI ---
1121 PT TO PACU 5 PT AWAKES AND TALKATIVE, TRYING TO RUB EYES, PT ASSISTED NOT TO IV TO RT FA #20 WITH NS 500ML UP AT KVO RATE PER GRAVITY, ID BRACELET TO LT WRIST , PT ID'D WITH 2 IDENTIFIERS, BILAT SCDS ON. MONITOR SR WITH NO ECTOPY, VSS. 1130 PT MORE ALERT TALKATIVE TAKING OCC ICE CHIPS SATS 96-97%.
--- NOTE | 2022-08-02 14:12 | ANE.PACU2 ---
Inpatient post-anesthesia follow up: Airway intact: Yes Vital signs: Temperature 97.2 F Pulse Rate 80 Respiratory Rate 16 Blood Pressure 113/66 Pulse Oximetry 93 Oxygen Delivery Me thod Room Air Oxygen Flow Rate Fraction of Inspir ed Oxygen Hydration adequate: Yes Nausea and vomiting: No Pain level: 1 Mental status: Baseline
== END 2022-08-02 12:15 | disposition home or self-care (01) ==
PROVIDERS: PCP Family Medicine; Visit Provider Urology
PROC: 0TBB8ZZ Excision of Bladder, Via Natural or Artificial Opening Endoscopic (ICD-10-PCS; CPT 52235; principal; 2022-08-02 11:10)
PROC: 0TJB8ZZ Inspection of Bladder, Via Natural or Artificial Opening Endoscopic (ICD-10-PCS; CPT 52000; 2022-08-02 11:10)
DX: C67.0 Malignant neoplasm of trigone of bladder (principal); K21.9 Gastro-esophageal reflux disease without esophagitis; Z87.891 Personal history of nicotine dependence
CPT/HCPCS: 52235; 88305; J1100; J1956; J2405; J2704; J3010; J3490; J7030

== ENCOUNTER → 2022-08-09 10:29 | Outpatient (BNVA) | payer MEDICARE, OTHER, SELFPAY | PROVIDERS: PCP Family Medicine; Visit Provider Urology | DX: D09.0 Carcinoma in situ of bladder (principal); C67.0 Malignant neoplasm of trigone of bladder; N99.111 Postprocedural bulbous urethral stricture, male | CPT/HCPCS: 81003 ==

== ENCOUNTER → 2022-11-03 14:16 | Outpatient (BNVA) | payer MEDICARE, BC, SELFPAY | PROVIDERS: PCP Family Medicine; Visit Provider Urology | DX: C67.0 Malignant neoplasm of trigone of bladder (principal); N99.111 Postprocedural bulbous urethral stricture, male; D09.0 Carcinoma in situ of bladder | CPT/HCPCS: 52000; 81003 ==

== ENCOUNTER → 2023-02-23 14:19 | Outpatient (BNVA) | payer MEDICARE, BC, SELFPAY | PROVIDERS: PCP Family Medicine; Visit Provider Urology | DX: C67.0 Malignant neoplasm of trigone of bladder (principal); D09.0 Carcinoma in situ of bladder; N99.111 Postprocedural bulbous urethral stricture, male | CPT/HCPCS: 81003 ==

== ENCOUNTER 2024-09-25 09:01 | Oncology outpatient (recurring) (ONCR) | payer MEDICARE, SELFPAY | END 2024-10-13 23:59 | disposition home or self-care (01) | PROVIDERS: PCP Family Medicine; Visit Provider Internal Medicine Medical Oncology | DX: C67.0 Malignant neoplasm of trigone of bladder (principal); F17.200 Nicotine dependence, unspecified, uncomplicated; D69.6 Thrombocytopenia, unspecified | CPT/HCPCS: 99204 ==